=== PATIENT | male | born 1985 | race Caucasian/White ===

== ENCOUNTER 2016-08-14 14:14 | Inpatient (IN) | payer SELFPAY ==
[2016-08-14] MEDS ORDERED: Thiamine IV* 100 MG, Folic Acid IV* 1 MG, Multiple Vitamin IV ADULT* 10 ML in NS 0.9% 1... IV ONE (14:34)
[2016-08-14] MEDS ORDERED: LORazepam INJ* 2 MG/ML 1 ML VIAL IV PUSH ONE (14:50)
[2016-08-14 15:24] LABS: Hematocrit 44 % (42-52); Hemoglobin 15.1 g/dl (14.0-18.0); Mean Corpuscular HGB Conc 34 g/dl (31-36); Mean Corpuscular Hemoglobin 34 pg (27-31); Mean Corpuscular Volume 100 fL (80-94); Mean Platelet Volume 9 um3 (7.4-10.4); Red Cell Distribution Width 13 % (10.5-15); White Blood Count 5.9 10^3/ul (3.5-10.8)
[2016-08-14 15:44] LABS: ALT 56 U/L (7-52); AST 98 U/L (13-39); Albumin 3.9 g/dL (3.2-5.2); Alkaline Phosphatase 116 U/L (34-104); Anion Gap 11 mmol/L (2-11); BUN/Creatinine Ratio 10.5 (8-20); Blood Urea Nitrogen 8 mg/dL (6-24); CO2 Carbon Dioxide 23 mmol/L (22-32); Calcium 9.1 mg/dL (8.6-10.3); Chloride 96 mmol/L (101-111); EGFR African American 155.9 (>60); EGFR Non-African American 121.3 (>60); Globulin 3.2 g/dL (2-4); Glucose 158 mg/dL (70-100); Magnesium 2.1 mg/dL (1.9-2.7); Potassium 3.8 mmol/L (3.5-5.0); Sodium 130 mmol/L (133-145); Total Protein 7.1 g/dL (6.4-8.9)
[2016-08-14 16:21] LABS: Alcohol < 10 mg/dL (<10)
--- NOTE | 2016-08-14 17:01 | RAD ---
Indication: Seizure like activity. Comparison: None. Technique: Noncontrast CT vertex of skull through foramen magnum. Report: The sulci, ventricles, and basal cisterns are normal for age. Hassan matter white matter differentiation is preserved without evidence for edema. No intra or extra axial hemorrhage, mass, or fluid collection detected. Unremarkable orbital contents. Unremarkable calvarium and skull base. Unremarkable scalp. Partially visualized RIGHT maxillary sinus is remarkable for an air-fluid level. Clear mastoid air spaces. IMPRESSION: 1. Negative unenhanced CT of the brain. 2. Air-fluid level in the partially visualized RIGHT maxillary sinus. Correlate for acute sinusitis.
[2016-08-14] MEDS ORDERED: Temazepam CAP* 15 MG PO PRN (17:06)
[2016-08-14] MEDS ORDERED: Thiamine IV* 100 MG/ML 2 ML VIAL IM ONE (17:08)
[2016-08-14] MEDS ORDERED: Magnesium Sulfate 1 GM IV* 1 GM/100 ML BAG IV ONE ×2 (17:10→22:00)
[2016-08-14] MEDS ORDERED: Nicotine Inhaler* 10 MG AMP INH PRN (17:24)
--- NOTE | 2016-08-14 17:32 | ED ---
Carlito Vaughn Rebecca, scribed for Atilio Araiza MD on 08/14/16 at 1439 . Neurological HPI - HPI Summary HPI Summary: Pt is a 31 y/o M who presents to ED s/p seizure. Seizure occurred suddenly at 1345 today while standing. Sz was witnessed, lasted between 2-3 minutes. Witness states that pt was standing and talking when he suddenly fell over. Sz was tonic clonic with pt shaking, foaming and blue in the mouth. Sx spontaneously resolved. When pt came to he was confused with slurred speech and decreased hearing. Pt confirms hitting head during seizure. Pt states that he is currently feeling lightheaded and "wobbly". Associated pain is currently 6/ 10. Denies CP, SOB, JOHNSON, N/V or biting tongue. Had one previous seizure 10 years ago. Is not on medications for seizures. SHx smoking and daily EtOH intake. Last bout of drinking was last night, ceasing at 1999. - History of Current Complaint Chief Complaint: EDSeizure Stated Complaint: SEIZURE Time Seen by Provider: 08/14/16 14:25 Hx Obtained From: Patient Onset/Duration: Sudden Onset Number of Seizures: 1 Pain Intensity: 6 Pain Scale Used: 0-10 Numeric Seizure Character: Tonic Alleviating: Spontanious Resolution Associated Signs and Symptoms: Positive: Confusion - s/p seizure, resolved, Seizure - 1x, Impaired Speech - s/p seizure, resolved, Lightheadness - s/p seizure. Negative: Chest Pain, Shortness of Breath Related Hx: Alcohol/Drug Abuse - Daily EtOH intake, Seizure - 1x 10 years ago - Allergy/Home Medications Allergies/Adverse Reactions: Allergies Allergy/AdvReac Type Severity Reaction Status Date / Time No Known Allergies Allergy Verified 08/14/16 15:33 Home Medications: Home Medications NK [No Home Medications Reported] 08/14/16 [History Confirmed 08/14/16] PMH/Surg Hx/FS Hx/Imm Hx Neurological History: Reports: Hx Seizures - 1x 10 years ago Infectious Disease History: No Infectious Disease History: Denies: Traveled Outside the [place] in Last 30 Days - Family History Known Family History: Positive: Cardiac Disease - Social History Alcohol Use: Daily Hx Substance Use: Yes - Marijuana 6-7 years ago Substance Use Type: Reports: None Hx Tobacco Use: Yes Smoking Status (MU): Heavy Every Day Tobacco Smoker Type: Cigarettes Amount Used/How Often: 1PPD Review of Systems Negative: Chest Pain Negative: Shortness Of Breath Negative: Vomiting, Nausea Neurological: Other - seizure 1x Positive: Slurred Speech - s/p sz, resolved. Negative: Headache Positive: Other - confusion, s/p seizure, resolved All Other Systems Reviewed And Are Negative: Yes Physical Exam - Summary Physical Exam Summary: VITAL SIGNS: Reviewed. GENERAL: Patient is a well developed and nourished male who is lying comfortable in the stretcher. Patient is not in any acute respiratory distress. HEAD AND FACE: No signs of trauma. No ecchymosis, hematomas or skull depressions. No sinus tenderness. EYES: PERRLA, EOMI x 2, No injected conjunctiva, no nystagmus. No photophobia. EARS: Hearing grossly intact. Ear canals and tympanic membranes are within normal limits. MOUTH: Oropharynx within normal limits. NECK: Supple, trachea is midline, no adenopathy, no JVD, no carotid bruit, no c- spine tenderness, neck with full ROM. No meningeal signs, no Kernig's or brudzinskis signs. CHEST: Symmetric, no tenderness at palpation LUNGS: Clear to auscultation bilaterally. No wheezing or crackles. CVS: Regular rate and rhythm, S1 and S2 present, no murmurs or gallops appreciated. ABDOMEN: Soft, non-tender. No signs of distention. No rebound no guarding, and no masses palpated. Bowel sounds are normal. EXTREMITIES: FROM in all major joints, no edema, no cyanosis or clubbing. NEURO: Alert and oriented x 3. No acute neurological deficits. Speech is normal and follows commands. SKIN: Dry and warm Vital Signs On Initial Exam: Initial Vitals Temp Pulse Resp BP Pulse Ox 99.2 F 106 16 153/49 100 08/14/16 14:16 08/14/16 14:16 08/14/16 14:16 08/14/16 14:16 08/14/16 14:16 Diagnostics - Vital Signs Vital Signs Temp Pulse Resp BP Pulse Ox 08/14/16 14:16 99.2 F 106 16 153/49 100 - Laboratory Lab Results: Lab Results 08/14/16 Range/Units 15:13 WBC 5.9 (3.5-10.8) 10^3/ul RBC 4.40 (4.0-5.4) 10^6/ul Hgb 15.1 (14.0-18.0) g/dl Hct 44 (42-52) % MCV 100 H (80-94) fL MCH 34 H (27-31) pg MCHC 34 (31-36) g/dl RDW 13 (10.5-15) % Plt Count 126 L (150-450) 10^3/ul MPV 9 (7.4-10.4) um3 Neut % (Auto) 89.7 H (38-83) % Lymph % (Auto) 4.1 L (25-47) % [place] % (Auto) 5.1 (1-9) % Eos % (Auto) 0.1 (0-6) % Baso % (Auto) 1.0 (0-2) % Absolute Neuts (auto) 5.3 (1.5-7.7) 10^3/ul Absolute Lymphs (auto) 0.2 L (1.0-4.8) 10^3/ul Absolute Monos (auto) 0.3 (0-0.8) 10^3/ul Absolute Eos (auto) 0 (0-0.6) 10^3/ul Absolute Basos (auto) 0.1 (0-0.2) 10^3/ul Absolute Nucleated RBC 0 10^3/ul Nucleated RBC % 0 Result Diagrams: 08/14/16 15:13 08/14/16 15:13 Lab Statement: Any lab studies that have been ordered have been reviewed, and results considered in the medical decision making process. - CT Brain CT CT Interpretation Completed By: Radiologist - 1. Negative unenhanced CT of the brain. 2. Air-fluid level in the partially visualized RIGHT maxillary sinus. Correlate for acute sinusitis. - EKG 1607 Cardiac Rate: NL - 82 bpm EKG Rhythm: Sinus Rhythm - normal ST Segment: Normal - no ST elevations Course/Dx - Course Assessment/Plan: 41 y/o M with a Hx of alcoholism presents to ED with a sz. It was a tonic clonic and witnessed by his friend. They say it lasted for about 2 or 3 minutes. No Hx of seizures besides one at 20 years old. Blood work within normal limits except for increased AST and ALT. At this time I did not do a head CT seeing as how the pt is neurologically intact. I believe that the sx are secondary to alcohol withdrawal. The pt was given IV fluids, banana bag and Ativan. At this time I disclosed my PE and findings with Dr. Clinton who agrees to admit patient to her services for further workup and management. She request a Head CT. He is hemodynamically stable. AxO x3. - Diagnoses Provider Diagnoses: Seizure, alcohol withdarawal induced seizure - Physician Notifications Discussed Care of Patient With: Dr. Clinton, hospitalist, who agrees to admit pt. Time Discussed With Above Provider: 16:12 Discharge - Discharge Plan Condition: Stable Disposition: ADMITTED TO [facility] The documentation as recorded by the Carlito lancaster Rebecca accurately reflects the service I personally performed and the decisions made by me, Atilio Araiza MD.
[2016-08-14] MEDS ORDERED: LORazepam TAB(*) 1 MG PO SCH ×2 (18:00)
[2016-08-14] MEDS: Nicotine PATCH 21 MG/24 HR* PATCH TRANSDERM SCH (21:08)
[2016-08-14] MEDS: LORazepam TAB(*) 1 MG PO SCH (21:09)
--- NOTE | 2016-08-14 22:34 | HP ---
HISTORY AND PHYSICAL: DATE OF ADMISSION: 08/14/16 PRIMARY CARE PROVIDER: None. CHIEF COMPLAINT: Seizure. HISTORY OF PRESENT ILLNESS: Mr. Dobbs is a 31-year-old male alcoholic whose last alcoholic beverage was ingested on 08/13/16. The patient stated that he was in line at the gas station to get some more alcohol when all of a sudden he lost consciousness and he had a witnessed tonic-clonic seizure. He came into the hospital for evaluation. He is currently with a female friend. He stated that he is relocating from [place] and his female friend told him that they are relocating, so he can "get clean." He has history of drinking for several years and he drinks 4 to 5 "tallboys" of a heavy malt beverage. He stated that this has approximately 8 to 9% alcohol and is stronger than beer. He stated that he never really tried to live without alcohol. He has history of one episode of seizure when he was 20 years old. He stated that he was not evaluated for that. At that point, he does not believe that it was alcohol withdrawal seizure. He stated that at that point he was drinking "off and on." He has no other complaints. He is in mild withdrawal symptoms including tremors. He is going to be admitted with the diagnosis of alcohol withdrawal seizure. PAST MEDICAL HISTORY: History of seizure at the age of 20 without further workup. MEDICATIONS: None. ALLERGIES: No no known drug allergies. FAMILY HISTORY: Reviewed and noncontributory. SOCIAL HISTORY: The patient smokes a pack and a half of cigarettes a day and he has been smoking ever since he turned 18. He drinks 4 to 5 tallboys a day. He denies any drug use. He is an information technologist by profession, currently unemployed. He could not name a surrogate. REVIEW OF SYSTEMS: The patient stated that he has history of frequent dislocations of the left shoulder and he stated that he did dislocate the shoulder when he had a seizure and he reset it himself before the ambulance arrived. Currently he complains of pain in the area of his left shoulder. All the remaining 14 systems reviewed with the patient and were otherwise negative. PHYSICAL EXAMINATION GENERAL: The patient is a pleasant 31-year-old male who is in no acute distress. Alert, awake, and oriented x3. VITAL SIGNS: Blood pressure 153/49, heart rate of 106 and regular, respiratory rate 16, oxygen saturation 100% on room air, temperature 99.2. HEENT: Head: Atraumatic, normocephalic. Eyes: Pupils are equal, round, and reactive to light and accommodation. Oropharynx clear. Mucosa moist. NECK: Supple. No JVD. No bruit bilaterally. RESPIRATORY: Clear to auscultation bilaterally. CARDIOVASCULAR: Regular rate and rhythm. No murmurs. ABDOMEN: Soft, nontender. Bowel sounds are present in all 4 quadrants. EXTREMITIES: There is no edema. Pulses are +2 bilaterally. No clubbing or cyanosis. NEUROLOGIC: Speech is clear. Cranial nerves II through XII are grossly intact. Motor strength is 5/5 bilaterally. PSYCHIATRIC: The patient is alert and oriented x3, with no evidence of anxiety or depression. SKIN: On evaluation of the skin, no ecchymotic areas or rashes noted. DIAGNOSTIC STUDIES/LAB DATA: Include white blood cell count of 5.9, hemoglobin of 15.1, hematocrit of 44, MCV of 100, platelets of 126. Sodium is 130, potassium 3.8, chloride 96, carbon dioxide 23, BUN 11, creatinine 0.76. Liver function tests are bilirubin of 1.5, AST of 98, ALT of 56, and alkaline phosphatase of 116. Lactic acid of 1.4. Serum alcohol level was below 10. CT of the brain. Impression: "Negative unenhanced CT of the brain. Air fluid level partially visualized in the right maxillary sinus. Correlate for acute sinusitis." EKG showed heart rate of 82 beats per minute with normal sinus rhythm with elevation of J-point in leads V2 and V3. Borderline prolonged QT interval with QTC of 485 milliseconds. ASSESSMENT AND PLAN: In regards to the patient's alcohol withdrawal seizures, the patient is going to be placed on slow p.o. Ativan taper. Seizure precautions are going to be instituted. In regards to the patient's alcohol withdrawal, the patient is also going to be placed on alcohol withdrawal protocol with WAM and with Ativan. Thiamine and folate are going to be administered daily. In regards to the patient's seizure disorder, the patient is also going to be placed on telemetry monitored bed with seizure precautions. It is also possible that the patient had convulsive syncope. With that, he also is going to be observed on telemetry monitored bed. For his chronic alcoholism, he is going to be seeing social work in consultation. For DVT prophylaxis, the patient is at low risk and ambulation is going to be encouraged. For tobacco cessation, the patient was counseled for approximately 4 minutes during his admission. He is going to be placed on nicotine patch and nicotine inhaler. TIME SPENT: Approximately 58 minutes was spent on discharge of this patient, more than half of that time was spent [id number] with the patient doing the interview and physical exam. [id number]/[facility] #: [id number] MACEY
[2016-08-14] MEDS: Acetaminophen TAB* 325 MG PO PRN (23:14)
[2016-08-14] MEDS: NS 0.9% 1000 ML* 1,000 ML IV SCH (23:33)
[2016-08-15 00:46] LABS: Urine Bilirubin Negative (Negative); Urine Glucose Negative (Negative); Urine Nitrite Negative (Negative)
[2016-08-15 04:33] LABS: Benzodiazepine Urine Screen None Detected (None Detect)
[2016-08-15] MEDS: LORazepam TAB(*) 1 MG PO SCH (04:59)
[2016-08-15] MEDS: Acetaminophen TAB* 325 MG PO PRN (05:02)
[2016-08-15 05:54] LABS: Albumin 3.4 g/dL (3.2-5.2); BUN/Creatinine Ratio 7.7 (8-20); Calcium 8.3 mg/dL (8.6-10.3); EGFR African American 186.8 (>60); EGFR Non-African American 145.2 (>60); Globulin 2.9 g/dL (2-4); Magnesium 2.1 mg/dL (1.9-2.7); Potassium 3.2 mmol/L (3.5-5.0); Total Bilirubin 1.2 mg/dL (0.2-1.0); Total Protein 6.3 g/dL (6.4-8.9)
[2016-08-15] MEDS ORDERED: Potassium Chlor TAB* 20 MEQ TAB.ER PO ONE (07:24)
[2016-08-15] MEDS: Folic Acid TAB* 1 MG PO SCH (07:54)
[2016-08-15] MEDS: Multivitamins/Minerals TAB PO SCH (07:54)
[2016-08-15] MEDS: Nicotine PATCH 21 MG/24 HR* PATCH TRANSDERM SCH (08:03)
--- NOTE | 2016-08-15 09:23 | PN ---
Subjective Date of Service: 08/15/16 Interval History: pt feels well. Experiences slight tremors, on scheduled Ativan taper Objective Active Medications: Acetaminophen (Tylenol Tab*) 650 mg PO Q4H PRN PRN Reason: FEVER/PAIN Last Admin: 08/15/16 05:02 Dose: 650 mg Folic Acid (Folvite Tab*) 1 mg PO DAILY [facility] Last Admin: 08/15/16 07:54 Dose: 1 mg Sodium Chloride (Ns 0.9% 1000 Ml*) 1,000 mls @ 100 mls/hr IV PER RATE [facility] Last Admin: 08/14/16 23:33 Dose: 100 mls/hr Lorazepam (Ativan Tab(*)) 0 mg PO .PER WAM SCORE [facility] PRN Reason: Protocol Lorazepam (Ativan Tab(*)) 1 mg PO Q8H [facility]; Protocol PRN Reason: Taper Stop: 08/17/16 17:59 Last Admin: 08/15/16 04:59 Dose: 1 mg Multivitamins/Minerals (Theragran/Minerals Tab*) 1 tab PO DAILY [facility] Last Admin: 08/15/16 07:54 Dose: 1 tab Nicotine (Nicotine Inhaler*) 10 mg INH Q2H PRN PRN Reason: CRAVING Nicotine (Nicotine Patch 21 Mg/24 Hr*) 1 patch TRANSDERM 0900 [facility] Last Admin: 08/15/16 08:03 Dose: 1 patch Pharmacy Profile Note (Nicotine Patch Removal Note*) 1 note PATCH OFF 2100 [facility] Temazepam (Restoril Cap*) 15 mg PO BEDTIME PRN PRN Reason: INSOMNIA Last Admin: 08/15/16 00:05 Dose: 15 mg Vital Signs 08/14/16 08/14/16 08/14/16 18:00 18:05 18:30 Temperature Pulse Rate 89 85 88 Respiratory Rate Blood Pressure 112/84 127/83 (mmHg) O2 Sat by Pulse 99 99 97 Oximetry 08/14/16 08/14/16 08/14/16 18:33 19:00 19:05 Temperature Pulse Rate 96 86 Respiratory Rate Blood Pressure 125/81 (mmHg) O2 Sat by Pulse 97 99 Oximetry 08/14/16 08/14/16 08/14/16 20:00 20:15 21:09 Temperature 97.6 F Pulse Rate 95 Respiratory 14 14 16 Rate Blood Pressure 139/84 (mmHg) O2 Sat by Pulse 100 Oximetry 08/14/16 08/14/16 08/15/16 22:29 23:09 00:00 Temperature 98.5 F Pulse Rate 89 Respiratory 14 16 16 Rate Blood Pressure 136/84 (mmHg) O2 Sat by Pulse 100 Oximetry 08/15/16 08/15/16 08/15/16 00:01 01:38 02:00 Temperature 97.7 F Pulse Rate 87 Respiratory 20 16 20 Rate Blood Pressure 140/66 (mmHg) O2 Sat by Pulse 99 Oximetry 08/15/16 08/15/16 08/15/16 02:05 04:10 04:59 Temperature 98.1 F 97.5 F Pulse Rate 75 79 Respiratory 20 20 14 Rate Blood Pressure 108/68 108/69 (mmHg) O2 Sat by Pulse 100 100 Oximetry 08/15/16 08/15/16 08/15/16 06:00 06:18 06:59 Temperature 97.8 F Pulse Rate 77 Respiratory 20 20 16 Rate Blood Pressure 109/70 (mmHg) O2 Sat by Pulse 100 Oximetry 08/15/16 08:00 Temperature Pulse Rate Respiratory 16 Rate Blood Pressure (mmHg) O2 Sat by Pulse Oximetry Oxygen Devices in Use Now: None Appearance: 31 yo M in nAD,AAOx3 Eyes: No Scleral Icterus, PERRLA Ears/Nose/Mouth/Throat: NL Teeth, Lips, Gums, Mucous Membranes Moist Neck: NL Appearance and Movements; NL JVP, Trachea Midline Respiratory: Symmetrical Chest Expansion and Respiratory Effort, Clear to Auscultation Cardiovascular: NL Sounds; No Murmurs; No JVD Abdominal: NL Sounds; No Tenderness; No Distention, No Hepatosplenomegaly Lymphatic: No Cervical Adenopathy Extremities: No Edema, No Clubbing, Cyanosis Skin: No Rash or Ulcers, No Nodules or Sclerosis Neurological: Alert and Oriented x 3, NL Muscle Strength and Tone - mild tremor in b/l hands Result Diagrams: 08/14/16 15:13 08/15/16 05:32 Additional Lab and Data: Lab Results 08/14/16 Range/Units 15:13 WBC 5.9 (3.5-10.8) 10^3/ul RBC 4.40 (4.0-5.4) 10^6/ul Hgb 15.1 (14.0-18.0) g/dl Hct 44 (42-52) % MCV 100 H (80-94) fL MCH 34 H (27-31) pg MCHC 34 (31-36) g/dl RDW 13 (10.5-15) % Plt Count 126 L (150-450) 10^3/ul MPV 9 (7.4-10.4) um3 Neut % (Auto) 89.7 H (38-83) % Lymph % (Auto) 4.1 L (25-47) % [place] % (Auto) 5.1 (1-9) % Eos % (Auto) 0.1 (0-6) % Baso % (Auto) 1.0 (0-2) % Absolute Neuts (auto) 5.3 (1.5-7.7) 10^3/ul Absolute Lymphs (auto) 0.2 L (1.0-4.8) 10^3/ul Absolute Monos (auto) 0.3 (0-0.8) 10^3/ul Absolute Eos (auto) 0 (0-0.6) 10^3/ul Absolute Basos (auto) 0.1 (0-0.2) 10^3/ul Absolute Nucleated RBC 0 10^3/ul Nucleated RBC % 0 Microbiology and Other Data: Microbiology 08/15/16 00:15 Nasal Screen MRSA (PCR)(TRINI) - Final Nasal Mrsa Negative Assess/Plan/Problems-Billing Assessment: 31 yo M with h/o ETOH abuse presents after a seizure when not drinking x 12 hrs. - Patient Problems (1) Alcohol withdrawal seizure Comment: cont YOMAIRA Ativan, plan to d/c in aM. (2) Hypokalemia Comment: replacing PO (3) Alcoholic hepatitis Comment: mild, LFT's improving (4) Alcoholism Comment: SW consult pending (5) DVT prophylaxis Comment: ambulation low risk Status and Disposition: inpatient , requiring YOMAIRA Ativan taper for seizure prevention, plan to d/c on .
[2016-08-15] MEDS: NS 0.9% 1000 ML* 1,000 ML IV SCH ×2 (10:42→21:19)
[2016-08-15] MEDS ORDERED: Mouth Piece, Nicotine* 1 EACH CARTRIDGE INH ONE (20:00)
[2016-08-15] MEDS ORDERED: Nicotine Patch Removal NOTE PATCH OFF SCH (21:00)
[2016-08-15] MEDS ORDERED: LORazepam TAB(*) 1 MG PO PRN (21:20)
[2016-08-16 07:29] VITALS: BP 130/83
[2016-08-16] MEDS: Nicotine PATCH 21 MG/24 HR* PATCH TRANSDERM SCH (07:53)
[2016-08-16] MEDS: Multivitamins/Minerals TAB PO SCH (07:53)
[2016-08-16] MEDS: Folic Acid TAB* 1 MG PO SCH (07:53)
[2016-08-16] MEDS ORDERED: LORazepam TAB(*) 0.5 MG PO ONE (09:00)
--- NOTE | 2016-08-16 20:46 | DS ---
DISCHARGE SUMMARY: DATE OF ADMISSION: 08/14/16 DATE OF DISCHARGE: 08/16/16 DISCHARGE DIAGNOSES: 1. Alcohol withdrawal seizures. 2. Alcohol withdrawal with mild symptoms. 3. Mild alcoholic hepatitis. SECONDARY DIAGNOSIS: None. MEDICATIONS AT DISCHARGE: The patient is recommended to take multivitamin over the counter on daily basis. LABORATORY DATA PERFORMED DURING THE HOSPITAL STAY: Included: On 08/15/16, sodium 131, potassium 3 .2, chloride 104, carbon dioxide 23, BUN 5, creatinine 0.65. Liver function tests showed total bili colindres of 1.2, AST of 111, ALT of 51, and alkaline phosphatase of 97. HOSPITALIZATION COURSE: Robson Dobbs is a 31-year-old male with history of alcoholism and one seizu re at the age of 20, who presented after a seizure episode that occurred when he was not drinking fo r 12 hours, in line to get some more alcohol. He presented to the hospital for evaluation. He had mild withdrawal symptoms and mild transaminitis due to mild alcoholic hepatitis. He was placed on A tivan scheduled taper due to alcohol withdrawal seizures and he did very well. By the time of disch arge, he did not need any more Ativan and there were no seizures noted throughout his hospital stay. At discharge, he is recommended to abstain from driving for approximately 7 days and resume. The patient was seen by social services specialist due to that and that he has no insurance and he is new to the area. He is planning in the nearest future to establish Medicaid insurance. Once that happens, he is encouraged to find a primary care provider and see a primary care provider for a followup visit. PHYSICAL EXAMINATION AT THE TIME OF DISCHARGE: Vital Signs: Blood pressure of 130/68, heart rate o f 60, respiratory rate 18, oxygen saturation 100% on room air, temperature 98.2. General: The eric ent is a very pleasant 31-year-old male who is in no acute distress, alert, awake, and oriented x3. HEENT: Head atraumatic, normocephalic. Eyes: Pupils equal, reactive to light, and accommodation. Oropharynx is clear. Mucosa moist. Neck: Supple. No JVD. No bruit bilaterally. Cardiovascular: Regular rate and rhythm. No murmur. Respiratory: Clear to auscultation bilaterally. Abdomen: Soft, nontender, bowel sounds positive in all 4 quadrants. Extremities: There is no edema. Pulses +2 bilaterally. No clubbing or cyanosis. Neuro evaluation: Speech clear. Cranial nerves II thro ugh XII grossly intact. Motor strength is 5/5 bilaterally. Please note that this is a short summary of the patient's hospital stay. Please refer to full medic al records for details. TIME SPENT: Approximately 32 minutes were spent on the patient's discharge. [id number]/[facility] [place] #: [id number]
== END 2016-08-16 09:47 | disposition home or self-care (01) | DRG 897 ==
LOC: ED 14:14 → MEDTELE 17:06
PROVIDERS: ADMIT Internal Medicine; ATTEND Internal Medicine
DX: F10.239 Alcohol dependence with withdrawal, unspecified (principal); K70.10 Alcoholic hepatitis without ascites; G40.89 Other seizures; F17.210 Nicotine dependence, cigarettes, uncomplicated; E87.6 Hypokalemia; Y90.0 Blood alcohol level of less than 20 mg/100 ml
CPT/HCPCS: 36415; 70450; 80053; 80307; 80320; 81003; 83605; 83735; 85025; 87641; 93005; 99284; 99406; A9270-GY; G0480; J2060; J3411; J3475

== ENCOUNTER 2018-04-21 14:49 | Emergency (ER) | payer BC ==
[2018-04-21 15:10] VITALS: BP 118/86
--- NOTE | 2018-04-21 15:27 | UC ---
Abdominal Pain Male HPI - HPI Summary HPI Summary: 32 yo gentleman c/o episode of sudden vomit this afternoon approx 1-1:30pm. Was driving in car, had just picked up lunch (hadn't eaten) and felt nauseas, pulled over and vomited. Vomit appeared combo red blood and bile (not streaked) . No melena, last bm recent, brown loose. + urinary freq and urgency x several months, not better. No burning. No urinary discoration. No hx dm, nor family hx dm. No rash. No hemmorhoids. + pain in midepigastrium. No fever / chills. No recent cough. + tobacco. + alcohol, mostly beer, less frequently hard liquor. Did not drink heavily last night. Does report hx of vomiting in am, sometimes with blood, but not out of the blue. And since didn' t drink very much (relatively) last night. PSH - gastric surgery as a premature baby - History of Current Complaint Chief Complaint: UCAbdominalPain Stated Complaint: THROWING UP BLOOD Time Seen by Provider: 04/21/18 15:19 Hx Obtained From: Patient Pain Intensity: 2 - Allergies/Home Medications Allergies/Adverse Reactions: Allergies Allergy/AdvReac Type Severity Reaction Status Date / Time No Known Allergies Allergy Verified 08/14/16 15:33 PMH/Surg Hx/FS Hx/Imm Hx Previously Healthy: No - see hpi - Surgical History Surgical History: None - Family History Known Family History: Positive: Cardiac Disease - Social History Alcohol Use: Daily Alcohol Amount: pt states he drinks until he is incapacitated Substance Use Type: Marijuana Substance Use Comment - Amount & Last Used: Pt states he occassionally uses marijuana Smoking Status (MU): Heavy Every Day Tobacco Smoker Type: Cigarettes Amount Used/How Often: 1PPD Length of Time of Smoking/Using Tobacco: 15 years - Immunization History Most Recent Influenza Vaccination: unknown Most Recent Tetanus Shot: unknown Most Recent Pneumonia Vaccination: never received Review of Systems Constitutional: Negative Skin: Negative Eyes: Negative ENT: Other - see hpi Respiratory: Other - see hpi Cardiovascular: Other - see hpi Gastrointestinal: Other - see hpi Genitourinary: Other - see hpi Motor: Negative Neurovascular: Negative Musculoskeletal: Negative Neurological: Negative Psychological: Negative Is Patient Immunocompromised?: No All Other Systems Reviewed And Are Negative: Yes Physical Exam Triage Information Reviewed: Yes Appearance: No Pain Distress - sitting up, conversing easily, Thin Vital Signs: Initial Vital Signs Temp 97.4 F 04/21/18 15:03 Pulse 85 04/21/18 15:03 Resp 17 04/21/18 15:03 BP 118/86 04/21/18 15:03 Pulse Ox 98 04/21/18 15:03 Vital Signs Reviewed: Yes Eye Exam: Normal ENT: Positive: Other - post pharynx red, irritated. No sores / exudates. Neck exam: Normal Neck: Positive: Supple, Nontender Respiratory Exam: Normal Respiratory: Positive: Chest non-tender, Lungs clear, Normal breath sounds, No respiratory distress, No accessory muscle use Cardiovascular Exam: Normal Cardiovascular: Positive: RRR, No Murmur - no murm detected, Pulses Normal, Brisk Capillary Refill Abdominal Exam: Other - tender midepig. No rebound. Mild volunt gaurd. No cvat. RUQ not tender. Denies hemmorhoids Musculoskeletal Exam: Normal - grossly normal. Mild venous insuff changes ble. Neurological Exam: Normal - grossly nonfocal Psychological Exam: Normal - conversing easily and appropriately. Non- tremulous. Not slurred. Skin Exam: Normal - good general color, nondiaphoretic. Abd Pain Male Course/Dx - Course Course Of Treatment: Reviewed importance of further eval / tx, recommend Emergency Department. Offered EMS, declines. Will drive. BG 73mg / dl. Will check in ED again. Not faint, feels ok now. Questions as posed answered to the best of my ability. - Differential Dx/Clinical Impression Provider Diagnoses: Hemetemis. Acute abd pain, midepigastrium. Discharge - Sign-Out/Discharge Documenting (check all that apply): Patient Departure All imaging exams completed and their final reports reviewed: No Studies - Discharge Plan Condition: Guarded Disposition: HOME-RECOMMEND TO ED Patient Education Materials: Abdominal Pain (ED), Hematemesis (ED) Referrals: No Primary Care Phys,NOPCP [Primary Care Provider] - Additional Instructions: Please go to the Emergency Department. Call 911 if problems en route. - Billing Disposition and Condition Condition: GUARDED Disposition: Home-Recommend to ED
== END 2018-04-21 16:01 | disposition home health service (06) ==
LOC: UCEAST 14:49
DX: K92.0 Hematemesis (principal); R10.13 Epigastric pain; F17.210 Nicotine dependence, cigarettes, uncomplicated
CPT/HCPCS: 99212; G0463

== ENCOUNTER 2018-04-21 16:19 | Emergency (ER) | payer BC ==
[2018-04-21] MEDS ORDERED: Pantoprazole IV* 40 MG IV ONE (16:51)
[2018-04-21] MEDS ORDERED: Ondansetron ODT TAB* 4 MG PO ONE (16:52)
[2018-04-21 17:16] LABS: ABS Basophils 0 10^3/ul (0-0.2); ABS Eosinophils 0.1 10^3/ul (0-0.6); ABS Lymphocytes 1.7 10^3/ul (1.0-4.8); ABS Monocytes 0.3 10^3/ul (0-0.8); ABS Nucleated RBC 0 10^3/ul; Hematocrit 42 % (42-52); Lymphocyte % 34.1 % (25-47); Mean Corpuscular HGB Conc 35 g/dl (31-36); Mean Corpuscular Hemoglobin 35 pg (27-31); Mean Corpuscular Volume 98 fL (80-94); Nucleated Red Blood Cells % 0.4; Platelet Count 226 10^3/ul (150-450); Red Blood Count 4.34 10^6/ul (4.00-5.40); Red Cell Distribution Width 13 % (10.5-15); White Blood Count 5.1 10^3/ul (3.5-10.8)
--- NOTE | 2018-04-21 17:44 | RAD ---
Indication: Hematemesis. 2 views of the chest including dual energy PA views demonstrate no mediastinal shift. Heart is of normal size and configuration. Lung werner demonstrate no pleural fluid, pneumonia or pneumothorax. IMPRESSION: No active cardiopulmonary disease is noted.
[2018-04-21 17:45] LABS: INR 0.95 (0.77-1.02)
--- NOTE | 2018-04-21 19:22 | ED ---
GI/ HPI - HPI Summary HPI Summary: Patient sent by urgent care to ED for evaluation of one episode of vomiting with blood today. Denies any unusual symptoms prior or after event. Also denies fever, cough, sore throat, CP, SOB, D, abdominal pain, change in urine, change in BM. Patient is daily consumer of EtOH, states 4-6 beers daily 9 years. States prior history of hematemesis 3 over the past few years, with no evaluation of same. Last EtOH consumption last night 4-6 beers as usual. Denies active hallucinations, tremors, nausea, anxiety, JOHNSON. No current medical history. History of gastroskisis at , fixed with surgery. - History of Current Complaint Chief Complaint: EDGIBleed Time Seen by Provider: 04/21/18 16:48 Stated Complaint: VOMITING BLOOD Hx Obtained From: Patient Onset/Duration: Started Hours Ago Timing: Lasting Minutes Current Severity: None Vaginal Bleeding Description: Bright Red Pain Intensity: 0 Location of Pain: None Associated Signs and Symptoms: Positive: Hematemesis, Nausea, Vomiting - Allergy/Home Medications Allergies/Adverse Reactions: Allergies Allergy/AdvReac Type Severity Reaction Status Date / Time No Known Allergies Allergy Verified 04/21/18 16:35 PMH/Surg Hx/FS Hx/Imm Hx Endocrine/Hematology History: Denies: Hx Anticoagulant Therapy, Hx Diabetes Cardiovascular History: Denies: Hx Cardiac Arrest, Hx Hypertension Respiratory History: Denies: Hx Asthma GI History: Reports: Other GI Disorders - reports chronic abdominal pain Denies: Hx Ulcer History: Denies: Hx Dialysis Musculoskeletal History: Reports: Other Musculoskeletal History - frequent shoulder dislocations bilaterally Neurological History: Reports: Hx Seizures - 1x 10 years ago Denies: Hx CVA Psychiatric History: Reports: Hx Bipolar Disorder - adolescent bipolar disorder - Immunization History Date of Tetanus Vaccine: < 10 years Immunizations Up to Date: Yes Infectious Disease History: No Infectious Disease History: Reports: Hx of Known/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 3-5 8oz cups of coffee/day Hx Tobacco Use: Yes Smoking Status (MU): Heavy Every Day Tobacco Smoker Type: Cigarettes Amount Used/How Often: 1PPD Length of Time of Smoking/Using Tobacco: 15 years Review of Systems Constitutional: Negative Eyes: Negative ENT: Negative Cardiovascular: Negative Respiratory: Negative Positive: Vomiting, Nausea Genitourinary: Negative Musculoskeletal: Negative Skin: Negative Neurological: Negative Psychological: Normal All Other Systems Reviewed And Are Negative: Yes Physical Exam - Summary Physical Exam Summary: No tremors, diaphoresis, anxiety noted. No active vomiting. Patient is calm, nontoxic-appearing, responding appropriately and coherently. Triage Information Reviewed: Yes Vital Signs On Initial Exam: Initial Vitals Temp Pulse Resp BP Pulse Ox 97.8 F 82 17 131/80 99 04/21/18 16:32 04/21/18 16:32 04/21/18 16:32 04/21/18 16:32 04/21/18 16:32 Vital Signs Reviewed: Yes Appearance: Positive: Well-Appearing Skin: Positive: Warm Head/Face: Positive: Normal Head/Face Inspection Eyes: Positive: Normal Neck: Positive: Supple Respiratory/Lung Sounds: Positive: Clear to Auscultation Cardiovascular: Positive: Normal Abdomen Description: Positive: Nontender Musculoskeletal: Positive: Normal Neurological: Positive: Normal Psychiatric: Positive: Normal AVPU Assessment: Alert - Oneal Coma Scale Best Eye Response: 4 - Spontaneous Best Motor Response: 6 - Obeys Commands Best Verbal Response: 5 - Oriented Coma Scale Total: 15 Diagnostics - Vital Signs Vital Signs Temp Pulse Resp BP Pulse Ox 04/21/18 16:32 97.8 F 82 17 131/80 99 - Laboratory Lab Results: Lab Results 04/21/18 04/21/18 04/21/18 Range/Units 17:02 17:03 17:03 WBC 5.1 (3.5-10.8) 10^3/ul RBC 4.34 (4.00-5.40) 10^6/ul Hgb 15.0 (14.0-18.0) g/dl Hct 42 (42-52) % MCV 98 H (80-94) fL MCH 35 H (27-31) pg MCHC 35 (31-36) g/dl RDW 13 (10.5-15) % Plt Count 226 (150-450) 10^3/ul MPV 8.0 (7.4-10.4) um3 Neut % (Auto) 58.9 (38-83) % Lymph % (Auto) 34.1 (25-47) % Coles % (Auto) 5.3 (0-7) % Eos % (Auto) 1.0 (0-6) % Baso % (Auto) 0.7 (0-2) % Absolute Neuts (auto) 3.0 (1.5-7.7) 10^3/ul Absolute Lymphs (auto) 1.7 (1.0-4.8) 10^3/ul Absolute Monos (auto) 0.3 (0-0.8) 10^3/ul Absolute Eos (auto) 0.1 (0-0.6) 10^3/ul Absolute Basos (auto) 0 (0-0.2) 10^3/ul Absolute Nucleated RBC 0 10^3/ul Nucleated RBC % 0.4 INR (Anticoag Therapy) 0.95 (0.77-1.02) Sodium 134 L (135-145) mmol/L Potassium 4.1 (3.5-5.0) mmol/L Chloride 99 L (101-111) mmol/L Carbon Dioxide 28 (22-32) mmol/L Anion Gap 7 (2-11) mmol/L BUN 11 (6-24) mg/dL Creatinine 0.96 (0.67-1.17) mg/dL Est GFR ( Amer) 111.3 (>60) Est GFR (Non-Af Amer) 92.0 (>60) BUN/Creatinine Ratio 11.5 (8-20) Glucose 93 (70-100) mg/dL Calcium 8.4 L (8.6-10.3) mg/dL Total Bilirubin 0.70 (0.2-1.0) mg/dL AST 59 H (13-39) U/L ALT 35 (7-52) U/L Alkaline Phosphatase 77 (34-104) U/L C-Reactive Protein < 1.00 (<8.01) mg/L Total Protein 7.1 (6.4-8.9) g/dL Albumin 3.8 (3.2-5.2) g/dL Globulin 3.3 (2-4) g/dL Albumin/Globulin Ratio 1.2 (1-3) Lipase 34 (11.0-82.0) U/L Serum Alcohol 120 H (<10) mg/dL Result Diagrams: 04/21/18 17:03 04/21/18 17:03 Lab Statement: Any lab studies that have been ordered have been reviewed, and results considered in the medical decision making process. - Radiology cxr Xray Interpretation: No Acute Changes Radiology Interpretation Completed By: Radiologist - EKG 1 Cardiac Rate: NL EKG Rhythm: Sinus Rhythm ST Segment: Non-Specific Ectopy: None GIGU Course/Dx - Course Course Of Treatment: Patient sent by urgent care to ED for evaluation of one episode of vomiting with blood today. Denies any unusual symptoms prior or after event. Also denies fever, cough, sore throat, CP, SOB, D, abdominal pain , change in urine, change in BM. Patient is daily consumer of EtOH, states 4-6 beers daily 9 years. States prior history of hematemesis 3 over the past few years, with no evaluation of same. Last EtOH consumption last night 4-6 beers as usual. Denies active hallucinations, tremors, nausea, anxiety, JOHNSON. No current medical history. History of gastroskisis at , fixed with surgery. Physical exam:No tremors, diaphoresis, anxiety noted. No active vomiting. Patient is calm, nontoxic-appearing, responding appropriately and coherently. Vital signs normal. Labs unremarkable. Hemoccult negative. No active N/V here in the ED. No abdominal pain. BUN normal. H&H normal. Likely alcoholic gastritis. Rx for Prilosec. Follow-up with primary care. - Diagnoses Provider Diagnoses: Hematemesis, Alcoholic gastritis Discharge - Sign-Out/Discharge Documenting (check all that apply): Patient Departure - Discharge Plan Condition: Stable Disposition: HOME Prescriptions: Omeprazole CAP* [Prilosec CAP* 20 MG] 20 mg PO DAILY 30 Days #30 Patient Education Materials: Gastritis (ED), Hematemesis (ED) Referrals: No Primary Care Phys,NOPCP [Primary Care Provider] - Additional Instructions: Follow-up with primary care. Stop drinking alcohol to prevent recurrent gastritis. Return to the ED for any new or worsening symptoms - Billing Disposition and Condition Condition: STABLE Disposition: Home
[2018-04-21 20:54] VITALS: BP 109/81
== END 2018-04-21 20:53 | disposition home or self-care (01) ==
LOC: ED 16:19
DX: K29.21 Alcoholic gastritis with bleeding (principal); F31.9 Bipolar disorder, unspecified; F17.210 Nicotine dependence, cigarettes, uncomplicated
CPT/HCPCS: 36415; 71046; 80053; 80320; 82270; 83690; 85025; 85610; 86140; 93005; 96374; 99283; A9270-GY; G0480

== ENCOUNTER 2018-10-06 16:13 | Emergency (ER) | payer BC ==
[2018-10-06] MEDS ORDERED: Ondansetron INJ* 2 MG/ML VIAL IV ONE (17:56)
[2018-10-06] MEDS ORDERED: NS 0.9% 1000 ML** 2,000 ML IV ONE (17:56)
--- NOTE | 2018-10-06 17:58 | ED ---
GI/ HPI - HPI Summary HPI Summary: Pt is a 33 y/o M presenting to the ED sent over from with a chief complaint of diarrhea and vomiting onset 1wk ago. The pt reports decreased oral intake, nausea, vomiting, diarrhea. The pt denies chest pain or sore throat. - History of Current Complaint Chief Complaint: EDNauseaVomitDiarrh Time Seen by Provider: 10/06/18 17:44 Stated Complaint: ABD PAIN, DIARRHEA Hx Obtained From: Patient Onset/Duration: Started Hours Ago, Still Present Timing: Lasting Hours Severity: Mild Current Severity: Mild Pain Intensity: 1 Location of Pain: None Associated Signs and Symptoms: Positive: Nausea, Vomiting, Diarrhea, Change in Appetite Aggravating Factor(s): Nothing Alleviating Factor(s): Nothing - Allergy/Home Medications Allergies/Adverse Reactions: Allergies Allergy/AdvReac Type Severity Reaction Status Date / Time No Known Allergies Allergy Verified 10/06/18 16:51 PMH/Surg Hx/FS Hx/Imm Hx Previously Healthy: Yes Endocrine/Hematology History: Denies: Hx Anticoagulant Therapy, Hx Diabetes Cardiovascular History: Denies: Hx Cardiac Arrest, Hx Hypertension Respiratory History: Denies: Hx Asthma GI History: Reports: Other GI Disorders - reports chronic abdominal pain Denies: Hx Ulcer History: Denies: Hx Dialysis Musculoskeletal History: Reports: Other Musculoskeletal History - frequent shoulder dislocations bilaterally Neurological History: Reports: Hx Seizures - 1x 10 years ago Denies: Hx CVA Psychiatric History: Reports: Hx Bipolar Disorder - adolescent bipolar disorder - Immunization History Date of Tetanus Vaccine: < 10 years Infectious Disease History: No Infectious Disease History: Reports: Hx of Known/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 3-5 8oz cups of coffee/day Hx Tobacco Use: Yes Smoking Status (MU): Heavy Every Day Tobacco Smoker Type: Cigarettes Amount Used/How Often: 1PPD Length of Time of Smoking/Using Tobacco: 15 years Review of Systems Positive: Fever Negative: Sore Throat Negative: Chest Pain Positive: Vomiting, Diarrhea, Nausea All Other Systems Reviewed And Are Negative: Yes Physical Exam - Summary Physical Exam Summary: Appearance: Well appearing, no pain distress Skin: warm, dry, reflects adequate perfusion Head/face: normal Eyes: EOMI, ROBBIE ENT: dry mucous membranes Neck: supple, non-tender Respiratory: CTA, breath sounds present Cardiovascular: RRR, pulses symmetrical Abdomen: tenderness llq Musculoskeletal: normal, strength/ROM intact Neuro: normal, sensory motor intact, A&Ox3 Triage Information Reviewed: Yes Vital Signs On Initial Exam: Initial Vitals Temp Pulse Resp BP Pulse Ox 100.5 F 99 17 135/90 97 10/06/18 16:49 10/06/18 16:49 10/06/18 16:49 10/06/18 16:49 10/06/18 16:49 Vital Signs Reviewed: Yes Diagnostics - Vital Signs Vital Signs Temp Pulse Resp BP Pulse Ox 10/06/18 17:47 97.3 F 10/06/18 17:42 86 136/103 98 10/06/18 17:41 99 98 10/06/18 16:49 100.5 F 99 17 135/90 97 - Laboratory Result Diagrams: 10/06/18 18:02 10/06/18 18:02 Lab Statement: Any lab studies that have been ordered have been reviewed, and results considered in the medical decision making process. - CT abd/pelv CT CT Interpretation Completed By: Radiologist Summary of CT Findings: 1. Mild sigmoid colon diverticulitis without abscess or perforation. 2. Hepatomegaly without discrete mass. ED physician has reviewed this report. - Ultrasound No standard instances Ultrasound Interpretation Completed By: Radiologist Summary of Ultrasound Findings: ABD US. 1. Hepatic enlargement with steatosis. 2. Otherwise normal right upper quadrant ultrasound. ED physician has reviewed this report. GIGU Course/Dx - Course Course Of Treatment: Pt is a 33 y/o M presenting to the ED sent over from with a chief complaint of diarrhea and vomiting onset 1wk ago. The pt reports decreased oral intake, nausea, vomiting, diarrhea. The pt denies chest pain or sore throat. The pt's abd US shows hepatic enlargement with steatosis, but otherwise nml RUQ US. Abd/pelv CT shows mild sigmoid colon diverticulitis without abscess or perforation and hepatomegaly without discrete mass. Pt will be discharged home with a dx of diverticulitis. - Diagnoses Differential Diagnoses - Male: Diverticulosis, Gastroenteritis (Viral), Renal Colic Provider Diagnoses: Diverticulitis Discharge - Sign-Out/Discharge Documenting (check all that apply): Patient Departure Patient Received Moderate/Deep Sedation with Procedure: No - Discharge Plan Condition: Stable Disposition: HOME Prescriptions: Ciprofloxacin HCl [Cipro 500 MG TAB] 500 mg PO BID #20 tab metroNIDAZOLE [Flagyl 500 MG TAB] 500 mg PO TID #30 tab Ondansetron ODT TAB* [Zofran 4 MG Odt TAB*] 4 mg PO Q8H PRN #20 tab.odt MDD 3 PRN Reason: Nausea Referrals: [facility] [place] [facility] [Outside] Additional Instructions: Please follow up with your primary care provider in the next three days. Return to the ED with any new or worsening symptoms. - Billing Disposition and Condition Condition: STABLE Disposition: Home - Attestation Statements Document Initiated by Scribe: Yes Documenting Scribe: Isis Jiménez Provider For Whom Richard is Documenting (Include Credential): Dalton Samayoa MD. Scribe Attestation: Isis Vaughn scribed for Dalton Samayoa MD. on 10/06/18 at 2131. Scribe Documentation Reviewed: Yes Provider Attestation: The documentation as recorded by the Isis lancaster accurately reflects the service I personally performed and the decisions made by Dalton de guzman MD. Status of Scribe Document: Viewed
[2018-10-06 18:12] LABS: ABS Basophils 0 10^3/ul (0-0.2); ABS Eosinophils 0 10^3/ul (0-0.6); ABS Lymphocytes 1.4 10^3/ul (1.0-4.8); ABS Monocytes 0.3 10^3/ul (0-0.8); ABS Neutrophils 2.9 10^3/ul (1.5-7.7); ABS Nucleated RBC 0 10^3/ul; Eosinophil % 0.4 %; Hematocrit 46 % (42-52); Hemoglobin 16.2 g/dl (14.0-18.0); Lymphocyte % 29.7 %; Mean Corpuscular HGB Conc 35 g/dl (31-36); Mean Corpuscular Hemoglobin 36 pg (27-31); Mean Corpuscular Volume 103 fL (80-94); Mean Platelet Volume 8.6 fL (7.4-10.4); Nucleated Red Blood Cells % 0.1; Platelet Count 240 10^3/ul (150-450); Red Blood Count 4.47 10^6/ul (4.00-5.40); Red Cell Distribution Width 13 % (10.5-15); White Blood Count 4.6 10^3/ul (3.5-10.8)
[2018-10-06 18:31] LABS: ALT 139 U/L (7-52); AST 168 U/L (13-39); Albumin 4.7 g/dL (3.2-5.2); Albumin/Globulin Ratio 1.4 (1-3); Alkaline Phosphatase 125 U/L (34-104); Anion Gap 10 mmol/L (2-11); Blood Urea Nitrogen 7 mg/dL (6-24); C Reactive Protein < 1.00 mg/L (<8.01); CO2 Carbon Dioxide 27 mmol/L (22-32); Calcium 9.4 mg/dL (8.6-10.3); Chloride 99 mmol/L (101-111); EGFR African American 105.5 (>60); EGFR Non-African American 87.2 (>60); Globulin 3.3 g/dL (2-4); Glucose 108 mg/dL (70-100); Potassium 4.2 mmol/L (3.5-5.0); Sodium 136 mmol/L (135-145)
[2018-10-06 18:56] LABS: Influenza A Molecular NEGATIVE (Negative); Influenza B Molecular NEGATIVE (Negative)
[2018-10-06] MEDS ORDERED: NS 0.9% 1000 ML** 1,000 ML IV SCH (19:45)
[2018-10-06 19:47] LABS: Urine Appearance Clear; Urine Bilirubin Negative (Negative); Urine Blood Negative (Negative); Urine Color Yellow; Urine Glucose Negative (Negative); Urine Ketones Negative (Negative); Urine Nitrite Negative (Negative); Urine Protein Negative (Negative); Urine Specific Gravity 1.024 (1.010-1.030); Urine Urobilinogen Negative (Negative)
[2018-10-06] MEDS ORDERED: Iohexol 300* (CONTRAST) 10 ML SDV IV ONE (19:47)
[2018-10-06] MEDS ORDERED: Ondansetron ODT TAB* 4 MG PO ONE (21:24)
[2018-10-06] MEDS ORDERED: Ciprofloxacin TAB* 500 MG PO ONE (21:25)
[2018-10-06] MEDS ORDERED: metroNIDAZOLE TAB* 250 MG PO ONE (21:26)
[2018-10-06 21:49] VITALS: BP 132/86
== END 2018-10-06 21:53 | disposition home or self-care (01) ==
LOC: ED 16:13
DX: K57.32 Diverticulitis of large intestine without perforation or abscess without bleeding (principal); R16.0 Hepatomegaly, not elsewhere classified; R11.2 Nausea with vomiting, unspecified; R19.7 Diarrhea, unspecified; F17.210 Nicotine dependence, cigarettes, uncomplicated
CPT/HCPCS: 36415; 74177; 76705; 80053; 81003; 83605; 83690; 84484; 85025; 86140; 87040; 96374; 99283; A9270-GY; J2405; Q9967

== ENCOUNTER 2022-03-23 21:35 | Inpatient (IN) ==
[~2022-03-23 21:35] MED LIST: Etomidate 40 mg/20 ml (2 MG/ML) 20 ml VIAL (40 mg) ONE; Rocuronium 50 mg VIAL 10 mg/ml 5 ml VIAL (50 mg) ONE
[2022-03-23] MEDS ORDERED: Lactated Ringers 1000 ml BAG 1,000 ML IV ONE (21:40)
[2022-03-23] MEDS ORDERED: Propofol 10 mg/ml 100 ML BTL 100 ML IV ONE (21:41)
[2022-03-23 21:50] LABS: ABS Lymphocytes 0.5 10^3/ul (1.0-4.8); ABS Monocytes 0.3 10^3/ul (0-0.8); ABS Neutrophils 5.3 10^3/ul (1.5-7.7); Eosinophil % 0.7 %; Hematocrit 43 % (42-52); Hemoglobin 14.7 g/dL (14.0-18.0); Lymphocyte % 8.8 %; Mean Corpuscular HGB Conc 34 g/dL (31-36); Mean Corpuscular Hemoglobin 36 pg (27-31); Mean Corpuscular Volume 106 fL (80-94); Mean Platelet Volume 8.9 fL (7.4-10.4); Platelet Count 142 10^3/uL (150-450); Red Blood Count 4.11 10^6 /uL (4.18-5.48); Red Cell Distribution Width 13 % (10-15); White Blood Count 6.2 10^3/uL (3.5-10.8)
[2022-03-23 22:10] LABS: INR 1.1 (0.89-1.11)
[2022-03-23 22:17] LABS: ALT 110 U/L (7-52); AST 275 U/L (13-39); Albumin 4.3 g/dL (3.2-5.2); Albumin/Globulin Ratio 1.3 (1-3); Alcohol, S < 13 mg/dL (<13); Alkaline Phosphatase 191 U/L (35-149); Anion Gap 12 mmol/L (2-11); Blood Urea Nitrogen 8 mg/dL (6-24); C Reactive Protein < 1.00 mg/L (<8.01); CO2 Carbon Dioxide 22 mmol/L (22-32); Calcium 8.9 mg/dL (8.6-10.3); Chloride 97 mmol/L (101-111); Creatine Kinase 257 U/L (10-223); Globulin 3.2 g/dL (2-4); Glucose 192 mg/dL (70-100); Potassium 4.1 mmol/L (3.5-5.0); Sodium 131 mmol/L (135-145); Total Protein 7.5 g/dL (6.4-8.9); eGFR CKD-EPI 115.3 (>60)
[2022-03-23] MEDS ORDERED: diazePAM INJ CARPUJECT 5 MG/ML SYRINGE IV PRN (22:27)
[2022-03-23 22:31] LABS: Acetaminophen < 15 mcg/mL; Salicylate < 2.50 mg/dL (<30)
[2022-03-23] MEDS ORDERED: Propofol 10 MG/ML 20 ML BTL IV PUSH ONE (22:33)
[2022-03-23 22:48] LABS: Urine Appearance Clear; Urine Bilirubin Negative (Negative); Urine Color Straw; Urine Glucose Trace (100mg/dL) (Negative); Urine Ketones Negative (Negative)
[2022-03-23 22:49] LABS: Urine Nitrite Negative (Negative); Urine Protein 1+ (30 mg/dL) (Negative); Urine Urobilinogen 0.2 (Negative) (Negative)
[2022-03-23 23:00] LABS: Urine Benzodiazepine Screen Presumptive Positive (None Detect); Urine Cannabinoids Screen Presumptive Positive (None Detect); Urine Opiates Screen None Detected (None Detect)
[2022-03-23] MEDS ORDERED: Pantoprazole VIAL 40 MG VIAL IV SCH (23:00)
[2022-03-23] MEDS: Midazolam 50 MG VIAL IV DRIP 50 ML IV SCH (23:00)
[2022-03-23] MEDS ORDERED: Midazolam 10 mg/10 ml VIAL 1 mg/ml 10 ml VIAL (10 mg) IV SLOW PU ONE (23:03)
[2022-03-23] MEDS ORDERED: diazePAM INJ CARPUJECT 5 MG/ML SYRINGE IV ONE (23:03)
[2022-03-23 23:08] LABS: Urine Bacteria Absent (Absent); Urine Red Blood Cell Trace(0-2/hpf) (Absent); Urine White Blood Cell Trace(0-5/hpf) (Absent)
[2022-03-23] MEDS ORDERED: Propofol 10 mg/ml 100 ML BTL 100 ML ONE (23:19)
[2022-03-23] MEDS ORDERED: Thiamine 100 MG/ML 2 ml VIAL 100 MG, Folic Acid IV 1 MG, Multiple Vitamin IV ADULT 10 M... IV ONE (23:30)
[2022-03-23] MEDS ORDERED: fentaNYL 100 mcg/2 ml 50 MCG/ML VIAL IV SLOW PU ONE (23:35)
[2022-03-23] MEDS ORDERED: PHENobarbital IV 65 MG/ML 1 ml VIAL IV ONE (23:56)
[2022-03-24 00:05] LABS: PCO2 Arterial 38 mmHg (35-45); PO2 Arterial 86 mmHg (80-100)
[2022-03-24] MEDS ORDERED: PHENobarbital IV 65 MG/ML 1 ml VIAL IV ONE (00:12)
[2022-03-24] MEDS: Propofol 10 mg/ml 100 ML BTL 100 ML IV SCH ×9 (00:15→23:46)
[2022-03-24] MEDS ORDERED: Atropine 1% (ORAL/SL) 15 ML BTL SL PRN (00:17)
[2022-03-24] MEDS: Chlorhexidine MOUTHWASH 0.12% 15 ML UDC TOPICAL SCH ×6 (01:53→22:18)
[2022-03-24] MEDS ORDERED: Enoxaparin 40 MG/0.4 ML SYR SUBCUT SCH (02:00)
[2022-03-24] MEDS: Midazolam 50 MG VIAL IV DRIP 50 ML IV SCH ×4 (03:41→21:02)
[2022-03-24] MEDS: Pantoprazole VIAL 40 MG VIAL IV SCH ×2 (08:23→19:47)
[2022-03-24 08:30] LABS: ABS Lymphocytes 0.6 10^3/ul (1.0-4.8); ABS Monocytes 0.5 10^3/ul (0-0.8); ABS Neutrophils 3.8 10^3/ul (1.5-7.7); Eosinophil % 0.7 %; Hematocrit 39 % (42-52); Hemoglobin 13.6 g/dL (14.0-18.0); Lymphocyte % 11.4 %; Mean Corpuscular HGB Conc 35 g/dL (31-36); Mean Corpuscular Hemoglobin 37 pg (27-31); Mean Corpuscular Volume 105 fL (80-94); Mean Platelet Volume 9.1 fL (7.4-10.4); Nucleated Red Blood Cells % 0.1; Platelet Count 108 10^3/uL (150-450); Red Blood Count 3.73 10^6 /uL (4.18-5.48); Red Cell Distribution Width 13 % (10-15); White Blood Count 4.9 10^3/uL (3.5-10.8)
[2022-03-24] MEDS ORDERED: Lactated Ringers 1000 ml BAG 1,000 ML IV ONE (08:35)
[2022-03-24] MEDS ORDERED: Folic Acid IV 1 MG in NS 0.9% 50 ML 50 ML IV ONE (08:35)
[2022-03-24] MEDS ORDERED: Thiamine 100 MG/ML 2 ml VIAL 250 MG in NS 0.9% 100 ml BAG 100 ML IV SCH (09:00)
[2022-03-24 09:01] LABS: Albumin 3.6 g/dL (3.2-5.2); Albumin/Globulin Ratio 1.3 (1-3); Calcium 8.5 mg/dL (8.6-10.3); Globulin 2.7 g/dL (2-4); Phosphorus 2.9 mg/dL (2.5-5.0); Potassium 2.9 mmol/L (3.5-5.0); Total Bilirubin 1.2 mg/dL (0.2-1.0); Total Protein 6.3 g/dL (6.4-8.9); eGFR CKD-EPI 131.9 (>60)
[2022-03-24] MEDS: Thiamine 100 MG/ML 2 ml VIAL 500 MG in NS 0.9% 250 ml 250 ML IV SCH ×3 (09:44→23:51)
[2022-03-24] MEDS: KCL 20 MEQ/100 ML IVPREMIX 20 MEQ/100 ML BAG IV SCH ×4 (11:30→19:46)
[2022-03-24 15:35] LABS: Hematocrit 41 % (42-52); Hemoglobin 14.1 g/dL (14.0-18.0)
[2022-03-24] MEDS: Enoxaparin 40 MG/0.4 ML SYR SUBCUT SCH (19:47)
[2022-03-25] MEDS: Propofol 10 mg/ml 100 ML BTL 100 ML IV SCH ×6 (02:39→21:02)
[2022-03-25] MEDS: Chlorhexidine MOUTHWASH 0.12% 15 ML UDC TOPICAL SCH ×6 (02:40→22:16)
[2022-03-25] MEDS: Midazolam 50 MG VIAL IV DRIP 50 ML IV SCH ×3 (04:06→18:21)
[2022-03-25 05:21] LABS: ABS Lymphocytes 0.5 10^3/ul (1.0-4.8); ABS Monocytes 0.4 10^3/ul (0-0.8); ABS Neutrophils 6.3 10^3/ul (1.5-7.7); Eosinophil % 0.2 %; Hematocrit 41 % (42-52); Hemoglobin 13.8 g/dL (14.0-18.0); Lymphocyte % 7.1 %; Mean Corpuscular HGB Conc 34 g/dL (31-36); Mean Corpuscular Hemoglobin 37 pg (27-31); Mean Corpuscular Volume 107 fL (80-94); Mean Platelet Volume 9.9 fL (7.4-10.4); Platelet Count 92 10^3/uL (150-450); Red Blood Count 3.78 10^6 /uL (4.18-5.48); Red Cell Distribution Width 14 % (10-15); White Blood Count 7.3 10^3/uL (3.5-10.8)
[2022-03-25 05:55] LABS: ALT 69 U/L (7-52); Albumin 3.5 g/dL (3.2-5.2); Albumin/Globulin Ratio 1.3 (1-3); Alkaline Phosphatase 158 U/L (35-149); Blood Urea Nitrogen 5 mg/dL (6-24); CO2 Carbon Dioxide 21 mmol/L (22-32); Calcium 8.3 mg/dL (8.6-10.3); Chloride 106 mmol/L (101-111); Globulin 2.6 g/dL (2-4); Glucose 72 mg/dL (70-100); Magnesium 1.9 mg/dL (1.9-2.7); Sodium 140 mmol/L (135-145); Total Protein 6.1 g/dL (6.4-8.9); eGFR CKD-EPI 128.6 (>60)
[2022-03-25 05:57] LABS: Anion Gap 13 mmol/L (2-11)
[2022-03-25] MEDS: Pantoprazole VIAL 40 MG VIAL IV SCH (07:52)
[2022-03-25] MEDS: Thiamine 100 MG/ML 2 ml VIAL 500 MG in NS 0.9% 250 ml 250 ML IV SCH ×2 (07:52→17:24)
[2022-03-25 12:48] LABS: Blood Urea Nitrogen 5 mg/dL (6-24); CO2 Carbon Dioxide 21 mmol/L (22-32); Calcium 8.7 mg/dL (8.6-10.3); Chloride 106 mmol/L (101-111); Glucose 61 mg/dL (70-100); Magnesium 2.1 mg/dL (1.9-2.7); Sodium 140 mmol/L (135-145)
[2022-03-25 12:52] LABS: Anion Gap 13 mmol/L (2-11)
[2022-03-25 13:18] LABS: Potassium, Whole Blood 3.3 mmol/L (3.4-4.5)
[2022-03-25] MEDS ORDERED: Dextrose 50% Syringe 50 ml 25 GM/50 ML SYRINGE ONE (14:02)
[2022-03-25] MEDS ORDERED: Dextrose 50% VIAL 50 ml IV PRN (14:03)
[2022-03-25] MEDS: KCL 20 MEQ/100 ML IVPREMIX 20 MEQ/100 ML BAG IV SCH ×2 (14:12→16:17)
[2022-03-25 14:27] LABS: Potassium Redraw 3.1 mmol/L (3.5-5.0)
[2022-03-25] MEDS: Acetaminophen IV 1 GM/100ML 1,000 MG/100 ML BAG IV PRN (18:28)
[2022-03-25] MEDS: Enoxaparin 40 MG/0.4 ML SYR SUBCUT SCH (20:54)
[2022-03-26] MEDS: Propofol 10 mg/ml 100 ML BTL 100 ML IV SCH ×4 (00:22→09:36)
[2022-03-26] MEDS: Thiamine 100 MG/ML 2 ml VIAL 500 MG in NS 0.9% 250 ml 250 ML IV SCH (00:33)
[2022-03-26] MEDS: Acetaminophen IV 1 GM/100ML 1,000 MG/100 ML BAG IV PRN ×3 (01:36→20:48)
[2022-03-26] MEDS: Chlorhexidine MOUTHWASH 0.12% 15 ML UDC TOPICAL SCH ×4 (02:10→13:14)
[2022-03-26] MEDS: Midazolam 50 MG VIAL IV DRIP 50 ML IV SCH (04:16)
[2022-03-26 05:14] LABS: ABS Lymphocytes 0.5 10^3/ul (1.0-4.8); ABS Monocytes 0.6 10^3/ul (0-0.8); Eosinophil % 0.6 %; Hematocrit 43 % (42-52); Hemoglobin 14.4 g/dL (14.0-18.0); Lymphocyte % 6.8 %; Mean Corpuscular HGB Conc 34 g/dL (31-36); Mean Corpuscular Hemoglobin 36 pg (27-31); Mean Corpuscular Volume 108 fL (80-94); Mean Platelet Volume 9.9 fL (7.4-10.4); Platelet Count 94 10^3/uL (150-450); Red Blood Count 3.96 10^6 /uL (4.18-5.48); Red Cell Distribution Width 14 % (10-15); White Blood Count 7.2 10^3/uL (3.5-10.8)
[2022-03-26 05:56] LABS: Albumin 3.3 g/dL (3.2-5.2); Albumin/Globulin Ratio 1.2 (1-3); Calcium 8.5 mg/dL (8.6-10.3); Globulin 2.7 g/dL (2-4); Magnesium 1.8 mg/dL (1.9-2.7); Total Bilirubin 1.5 mg/dL (0.2-1.0); eGFR CKD-EPI 133.4 (>60)
[2022-03-26 06:17] LABS: Potassium 3.5 mmol/L (3.5-5.0)
[2022-03-26 06:18] LABS: Phosphorus 3.5 mg/dL (2.5-5.0)
[2022-03-26] MEDS ORDERED: Magnesium Sulfate 2 gm BAG 2 GM/50 ML BAG IVPB ONE (07:11)
[2022-03-26] MEDS ORDERED: KCL 20 MEQ/100 ML IVPREMIX 20 MEQ/100 ML BAG IV ONE (08:00)
[2022-03-26] MEDS ORDERED: Multivitamins ADULT w/MIN LIQ 15 ML UDC FEED TUBE SCH (09:00)
[2022-03-26] MEDS ORDERED: Thiamine 100 MG/ML 2 ml VIAL 500 MG in NS 0.9% 250 ml 250 ML IV SCH (09:00)
[2022-03-26] MEDS ORDERED: Pantoprazole VIAL 40 MG VIAL IV SCH (09:00)
[2022-03-26] MEDS ORDERED: Furosemide 40 mg/4 ml IV VIAL IV SLOW PU ONE (10:04)
[2022-03-26] MEDS: Dexmedetomidine 1,000 MCG in NS 0.9% 250 ml 240 ML IV SCH (11:13)
[2022-03-26] MEDS: Enoxaparin 40 MG/0.4 ML SYR SUBCUT SCH (19:59)
[2022-03-27] MEDS ORDERED: Lorazepam PYXIS KEY PRN (01:14)
[2022-03-27] MEDS ORDERED: LORazepam 2 mg VIAL 1 ml IV PUSH PRN (01:14)
[2022-03-27] MEDS ORDERED: diazePAM INJ CARPUJECT 5 MG/ML SYRINGE IV ONE (01:26)
[2022-03-27] MEDS ORDERED: diazePAM INJ CARPUJECT 5 MG/ML SYRINGE ONE (01:33)
[2022-03-27] MEDS: diazePAM INJ CARPUJECT 5 MG/ML SYRINGE IV SCH ×3 (03:19→09:32)
[2022-03-27 04:33] LABS: Hematocrit 41 % (42-52); Hemoglobin 14.3 g/dL (14.0-18.0); Mean Corpuscular HGB Conc 35 g/dL (31-36); Mean Corpuscular Hemoglobin 36 pg (27-31); Mean Corpuscular Volume 105 fL (80-94); Mean Platelet Volume 9.9 fL (7.4-10.4); Platelet Count 111 10^3/uL (150-450); Red Blood Count 3.92 10^6 /uL (4.18-5.48); Red Cell Distribution Width 13 % (10-15); White Blood Count 10.2 10^3/uL (3.5-10.8)
[2022-03-27 05:11] LABS: Calcium 8.7 mg/dL (8.6-10.3); Magnesium 1.7 mg/dL (1.9-2.7); Phosphorus 2.6 mg/dL (2.5-5.0); Potassium 3.8 mmol/L (3.5-5.0); eGFR CKD-EPI 129.9 (>60)
[2022-03-27] MEDS ORDERED: KCL 20 MEQ/100 ML IVPREMIX 20 MEQ/100 ML BAG IV ONE (05:14)
[2022-03-27] MEDS ORDERED: Magnesium Sulfate IV 3 GM in NS 0.9% 100 ml BAG 100 ML IVPB ONE (05:14)
[2022-03-27] MEDS ORDERED: Magnesium Sulfate 2 GM IV (Premix) IVPB ONE (06:00)
[2022-03-27 06:05] LABS: ABS Eosinophils 0.1 10^3/ul (0-0.6); ABS Lymphocytes 0.6 10^3/ul (1.0-4.8); ABS Monocytes 1.1 10^3/ul (0-0.8); ABS Neutrophils 8.3 10^3/ul (1.5-7.7); Eosinophil % 1.3 %; Lymphocyte % 5.9 %
[2022-03-27 06:06] LABS: RBC Morphology Normal (Normal)
[2022-03-27] MEDS: Dexmedetomidine 1,000 MCG in NS 0.9% 250 ml 240 ML IV SCH (06:39)
[2022-03-27] MEDS ORDERED: Magnesium Sulfate 1 GM IV 1 GM/100 ML BAG IV ONE (07:00)
[2022-03-27] MEDS ORDERED: diazePAM INJ CARPUJECT 5 MG/ML SYRINGE IV PRN ×2 (07:59→08:07)
[2022-03-27] MEDS: Acetaminophen IV 1 GM/100ML 1,000 MG/100 ML BAG IV PRN ×2 (08:29→16:41)
[2022-03-27] MEDS ORDERED: Dexmedetomidine 1,000 MCG in NS 0.9% 250 ml 240 ML IV SCH (09:57)
[2022-03-27] MEDS: Multivitamins/Minerals TAB PO SCH (12:39)
[2022-03-27] MEDS ORDERED: Piperacillin/Tazobac ADVAN 3.375 GM in NS 0.9% 100 ml BAG 100 ML IV ONE (13:47)
[2022-03-27] MEDS ORDERED: Zosyn per Pharmacy NOTE FOLLOW UP SCH (14:00)
[2022-03-27] MEDS ORDERED: Thiamine 100 MG/ML 2 ml VIAL 100 MG in NS 0.9% 50 ML 50 ML IV ONE (14:00)
[2022-03-27] MEDS: Nicotine PATCH 7 MG/24 HR PATCH TRANSDERM SCH (16:41)
[2022-03-27] MEDS: ZOSYN 3.375 GM Q8H per EXTENDED INFUSION IV SCH (19:45)
[2022-03-27] MEDS: Enoxaparin 40 MG/0.4 ML SYR SUBCUT SCH (21:03)
[2022-03-27] MEDS ORDERED: Acetaminophen IV 1 GM/100ML 1,000 MG/100 ML BAG IV PRN (23:29)
[2022-03-28] MEDS: ZOSYN 3.375 GM Q8H per EXTENDED INFUSION IV SCH (03:37)
[2022-03-28 06:03] LABS: Hematocrit 47 % (42-52); Hemoglobin 16.4 g/dL (14.0-18.0); Mean Corpuscular HGB Conc 35 g/dL (31-36); Mean Corpuscular Hemoglobin 37 pg (27-31); Mean Corpuscular Volume 106 fL (80-94); Mean Platelet Volume 9.5 fL (7.4-10.4); Platelet Count 148 10^3/uL (150-450); Red Blood Count 4.49 10^6 /uL (4.18-5.48); Red Cell Distribution Width 13 % (10-15); White Blood Count 10.4 10^3/uL (3.5-10.8)
[2022-03-28 06:39] LABS: Albumin 3.4 g/dL (3.2-5.2); Albumin/Globulin Ratio 1.1 (1-3); Calcium 8.7 mg/dL (8.6-10.3); Globulin 3.2 g/dL (2-4); Magnesium 1.9 mg/dL (1.9-2.7); Phosphorus 4.5 mg/dL (2.5-5.0); Potassium 3.4 mmol/L (3.5-5.0); Total Bilirubin 1.4 mg/dL (0.2-1.0); Total Protein 6.6 g/dL (6.4-8.9); eGFR CKD-EPI 127.4 (>60)
[2022-03-28] MEDS: Nicotine PATCH 7 MG/24 HR PATCH TRANSDERM SCH (07:56)
[2022-03-28] MEDS: Multivitamins/Minerals TAB PO SCH (07:56)
[2022-03-28 08:42] LABS: Macrocytosis 1+
[2022-03-28 08:43] LABS: ABS Eosinophils 0.1 10^3/ul (0-0.6); ABS Lymphocytes 0.9 10^3/ul (1.0-4.8); ABS Monocytes 1.8 10^3/ul (0-0.8); ABS Neutrophils 7.6 10^3/ul (1.5-7.7); Eosinophil % 0.5 %; Lymphocyte % 8.8 %; Nucleated Red Blood Cells % 0.1
[2022-03-28] MEDS ORDERED: Potassium Chlor 20 meq TAB.ER PO ONE (09:26)
[2022-03-28] MEDS: Piperacillin/Tazobac ADVAN 3.375 GM in NS 0.9% 100 ml BAG 100 ML IV SCH ×2 (12:53→20:28)
[2022-03-28] MEDS: Enoxaparin 40 MG/0.4 ML SYR SUBCUT SCH (20:28)
[2022-03-29] MEDS: Piperacillin/Tazobac ADVAN 3.375 GM in NS 0.9% 100 ml BAG 100 ML IV SCH (04:24)
[2022-03-29 05:40] LABS: ABS Eosinophils 0.2 10^3/ul (0-0.6); ABS Lymphocytes 0.7 10^3/ul (1.0-4.8); ABS Monocytes 1.3 10^3/ul (0-0.8); ABS Neutrophils 3.3 10^3/ul (1.5-7.7); Eosinophil % 3.2 %; Hematocrit 40 % (42-52); Hemoglobin 13.8 g/dL (14.0-18.0); Lymphocyte % 13.3 %; Mean Corpuscular HGB Conc 34 g/dL (31-36); Mean Corpuscular Hemoglobin 36 pg (27-31); Mean Corpuscular Volume 105 fL (80-94); Mean Platelet Volume 9.3 fL (7.4-10.4); Platelet Count 179 10^3/uL (150-450); Red Blood Count 3.87 10^6 /uL (4.18-5.48); Red Cell Distribution Width 13 % (10-15); White Blood Count 5.6 10^3/uL (3.5-10.8)
[2022-03-29 06:22] LABS: Calcium 8.3 mg/dL (8.6-10.3); Magnesium 1.7 mg/dL (1.9-2.7); Phosphorus 3.9 mg/dL (2.5-5.0); eGFR CKD-EPI 134.1 (>60)
[2022-03-29 07:43] VITALS: BP 113/58
[2022-03-29] MEDS: Multivitamins/Minerals TAB PO SCH (08:53)
[2022-03-29] MEDS: Nicotine PATCH 7 MG/24 HR PATCH TRANSDERM SCH (08:56)
[2022-03-29] MEDS ORDERED: Potassium Chlor 20 meq TAB.ER PO ONE (09:15)
[2022-03-29] MEDS ORDERED: Magnesium Sulfate 2 gm BAG 2 GM/50 ML BAG IVPB ONE (09:15)
[2022-03-31 00:07] LABS: Anaplasma phagocytophilum Negative (Negative); B. miyamotoi PCR, B Negative (Negative); Babesia divergens/MO-1 Negative (Negative); Babesia ducani Negative (Negative); Ehrlichia chaffeensis Negative (Negative); Ehrlichia ewingii/canis Negative (Negative); Ehrlichia muris eauclairensis Negative (Negative)
[2022-03-31] MEDS ORDERED: Thiamine 100 MG/ML 2 ml VIAL 100 MG in NS 0.9% 50 ML 50 ML IV SCH (09:00)
== END 2022-03-29 11:45 | disposition home or self-care (01) | DRG 775 ==
LOC: ED 21:35 → SUATTDRO 22:46 → EDHOLD 22:46 → ICU 03-24 → MEDTELE 03-28 08:20
PROVIDERS: ADMIT Student in an Organized Health Care Education/Training Program; ATTEND Surgery Surgical Critical Care

== ENCOUNTER 2022-06-14 10:10 | Observation (INO) ==
[~2022-06-14 10:10] MED LIST changes: +Buffered Lidocaine 1% SYRIN 1 ml INTRADERM ONE; -Etomidate 40 mg/20 ml (2 MG/ML) 20 ml VIAL (40 mg) ONE; +Lactated Ringers 1000 ml BAG 1,000 ML IV SCH; -Rocuronium 50 mg VIAL 10 mg/ml 5 ml VIAL (50 mg) ONE
[2022-06-14] MEDS ORDERED: ceFAZolin 2 GM PREMIX 2 GM/50 ML BAG ONE (10:24)
[2022-06-14 10:59] LABS: ABS Eosinophils 0.1 10^3/ul (0-0.6); ABS Lymphocytes 1.1 10^3/ul (1.0-4.8); ABS Monocytes 0.6 10^3/ul (0-0.8); ABS Neutrophils 3.9 10^3/ul (1.5-7.7); Eosinophil % 1.8 %; Hematocrit 35 % (42-52); Lymphocyte % 18.4 %; Mean Corpuscular HGB Conc 34 g/dL (31-36); Mean Corpuscular Hemoglobin 35 pg (27-31); Mean Corpuscular Volume 102 fL (80-94); Mean Platelet Volume 7.4 fL (7.4-10.4); Platelet Count 446 10^3/uL (150-450); Red Blood Count 3.46 10^6 /uL (4.18-5.48); Red Cell Distribution Width 13 % (10-15); White Blood Count 5.8 10^3/uL (3.5-10.8)
[2022-06-14 11:09] LABS: INR 1.12 (0.89-1.11)
[2022-06-14 11:54] LABS: Blood Urea Nitrogen 8 mg/dL (6-24); CO2 Carbon Dioxide 27 mmol/L (22-32); Calcium 8.9 mg/dL (8.6-10.3); Chloride 100 mmol/L (101-111); Glucose 89 mg/dL (70-100); Sodium 132 mmol/L (135-145); eGFR CKD-EPI 132.5 (>60)
[2022-06-14 12:00] LABS: Anion Gap 5 mmol/L (2-11)
[2022-06-14] MEDS ORDERED: Propofol 10 MG/ML 20 ML BTL ONE (12:04)
[2022-06-14] MEDS ORDERED: Rocuronium 50 mg VIAL 10 mg/ml 5 ml VIAL (50 mg) ONE ×3 (12:04→18:50)
[2022-06-14] MEDS ORDERED: Lidocaine 2% PF 5 ML VIAL ONE ×2 (12:14→13:31)
[2022-06-14] MEDS ORDERED: Midazolam 2 mg/2 ml VIAL 1 mg/ml 2 ml VIAL (2 mg) ONE (12:14)
[2022-06-14] MEDS ORDERED: fentaNYL 250 mcg/5 ml 50 MCG/ML 5 ml VIAL (250 MCG) ONE (12:14)
[2022-06-14] MEDS ORDERED: Vancomycin 1,000 MG VIAL ONE ×2 (12:24→19:12)
[2022-06-14] MEDS ORDERED: NS 0.9% 1000 ml BAG 1,000 ML IV SCH (12:30)
[2022-06-14] MEDS ORDERED: ROPIVACAINE 5 MG/ML 30 ML BTL (0.5%) ONE (13:31)
[2022-06-14] MEDS ORDERED: Midazolam 5 mg/5 ml VIAL 1 mg/ml 5 ml VIAL (5 mg) ONE (13:31)
[2022-06-14] MEDS ORDERED: fentaNYL 100 mcg/2 ml 50 MCG/ML VIAL ONE (13:31)
[2022-06-14] MEDS ORDERED: Phenylephrine IV 10 MG/ML 1 ml VIAL ONE (14:41)
[2022-06-14] MEDS ORDERED: Acetaminophen IV 1 GM/100ML 1,000 MG/100 ML BAG IV ONE (16:57)
[2022-06-14] MEDS ORDERED: Naloxone 0.4 mg VIAL 0.4 mg/ml 1 ml VIAL IV PRN (17:11)
[2022-06-14] MEDS ORDERED: fentaNYL 100 mcg/2 ml 50 MCG/ML VIAL IV PRN (17:11)
[2022-06-14] MEDS ORDERED: HYDROmorphone 1 MG/1 ML SYRINGE IV PRN (17:11)
[2022-06-14] MEDS ORDERED: HYDROmorphone 0.5 MG/0.5 ML SYRINGE ONE ×2 (17:19→19:12)
[2022-06-14] MEDS ORDERED: ceFAZolin 2 GM in NS PREMIX 2 GM/100 ML BAG IVPB ONE (19:04)
[2022-06-14] MEDS ORDERED: Sugammadex 500 MG/5 ML 5 ml VIAL IV PUSH ONE (19:25)
[2022-06-14] MEDS ORDERED: Lactulose 30 ml UDC PO PRN (19:56)
[2022-06-14] MEDS ORDERED: Ondansetron ODT 4 mg TAB 4 MG TAB PO PRN (19:56)
[2022-06-14] MEDS ORDERED: Ondansetron 4 mg VIAL 2 MG/ML 2 ml VIAL IV PRN (19:56)
[2022-06-14] MEDS ORDERED: Magnesium Hydroxide LIQ 30 ML UDC PO PRN (19:56)
[2022-06-14] MEDS ORDERED: Lactated Ringers 1000 ml BAG 1,000 ML IV SCH (20:00)
[2022-06-14] MEDS: Nicotine GUM 4MG FRUIT FLAVOR PO PRN (22:15)
[2022-06-14] MEDS: Magnesium Hydroxide LIQ 30 ML UDC PO SCH (22:34)
[2022-06-15] MEDS: Nicotine GUM 4MG FRUIT FLAVOR PO PRN ×4 (00:07→10:17)
[2022-06-15] MEDS: ceFAZolin 1 GM ADVAN 1 GM in NS 0.9% 50 ML 50 ML IVPB SCH ×2 (02:58→10:40)
[2022-06-15] MEDS: Morphine 2 MG/ML SYRINGE IV PRN ×2 (02:58→07:25)
[2022-06-15] MEDS ORDERED: HYDROmorphone 0.5 MG/0.5 ML SYRINGE IV SLOW PU ONE (06:00)
[2022-06-15 06:15] LABS: Hematocrit 32 % (42-52); Hemoglobin 10.6 g/dL (14.0-18.0)
[2022-06-15 06:19] LABS: Calcium 8.1 mg/dL (8.6-10.3); Potassium 3.9 mmol/L (3.5-5.0); eGFR CKD-EPI 125.4 (>60)
[2022-06-15] MEDS: Magnesium Hydroxide LIQ 30 ML UDC PO SCH (08:13)
[2022-06-15] MEDS ORDERED: Vitamin THERAPEUTIC TAB PO SCH (09:00)
[2022-06-15] MEDS ORDERED: Heparin 5000 UNITS/ML 1 mL VIAL SUBCUT SCH (09:00)
[2022-06-15 11:36] VITALS: BP 120/80
[2022-06-15] MEDS ORDERED: HYDROmorphone 1 MG/1 ML SYRINGE IV ONE (12:00)
== END 2022-06-15 13:16 | disposition home or self-care (01) ==
LOC: SSU 10:10 → OR 10:10
PROVIDERS: ADMIT Orthopaedic Surgery; ATTEND Orthopaedic Surgery